=== PATIENT | female | born 1965 | race Two or more races ===

== ENCOUNTER 2024-03-13 07:09 | Outpatient (CLI) | payer OTHER | END 2024-03-13 07:20 | disposition home or self-care (01) | LOC: LAB 07:09 | DX: E11.9 Type 2 diabetes mellitus without complications (principal) ==

== ENCOUNTER 2024-04-10 07:04 | Outpatient (CLI) | payer OTHER ==
[2024-04-14 15:10] LABS: DNA AB DOUBLE STRABDED < 1 IU/mL (0-9); sjogrens ssa < 0.2 AI (0.0-0.9); sjogrens ssb < 0.2 AI (0.0-0.9)
[2024-04-16 10:47] LABS: ALDOLASE 2.4 U/L (3.3-10.3); SMOOTH MUSCLE ANTIBODY 4 Units (0-19)
== END 2024-04-10 07:05 | disposition home or self-care (01) ==
LOC: LAB 07:04
PROVIDERS: ATTEND Internal Medicine Rheumatology
DX: M06.4 Inflammatory polyarthropathy (principal); M06.09 Rheumatoid arthritis without rheumatoid factor, multiple sites; M79.10 Myalgia, unspecified site; M25.50 Pain in unspecified joint; M32.9 Systemic lupus erythematosus, unspecified; M35.00 Sjogren syndrome, unspecified; M35.1 Other overlap syndromes

== ENCOUNTER 2024-05-12 06:06 | Outpatient (CLI) | payer OTHER ==
[2024-05-12 07:53] LABS: HEMATOCRIT 34.3 % (36.0-45.00); HEMOGLOBIN 11.2 g/dL (12.0-15.00); MEAN CELL VOLUME 81.3 fL (80.00-100.00); MEAN CORPUSCULAR HEMOGLOBIN 26.6 pg (27.00-32.0); MEAN CORPUSCULAR HGB CONC 32.7 g/dl (32.0-36.0); PLATELET COUNT 278 K/uL (150-450); RED BLOOD COUNT 4.22 M/uL (4.00-6.00); RED CELL DISTRIBUTION WIDTH 13.9 % (11.5-14.5)
[2024-05-12 08:14] LABS: PH,URINE 5.5 (5.0-8.0); URINE APPEARANCE Clear; URINE BILIRRUBIN Negative (NEGATIVE); URINE BLOOD Negative; URINE COLOR Yellow; URINE GLUCOSE Negative (NEGATIVE); URINE KETONE Negative (NEGATIVE); URINE LEUKOCYTE Negative; URINE NITRATE Negative; URINE PROTEIN Negative (NEGATIVE); URINE UROBILINOGEN 0.2 E.U./dl
[2024-05-12 08:16] LABS: URINE BACTERIA 18.8 uL (0.0-1933)
[2024-05-12 08:34] LABS: URINE CAST 0.15 uL (0.0-1.40); URINE EPITHELIAL CELLS 0.6 uL (0.0-38.8); URINE RBC 0.4 uL (0.0-20.8); URINE WBC 0.4 uL (0.0-23.2)
[2024-05-12 08:39] LABS: BILIRUBIN TOTAL 0.31 mg/dL (0.3-1.2); CALCIUM 9.8 mg/dL (8.5-10.1); CHOL HDL RATIO 2.5 (0-5.0); CREATININE SERUM 0.79 mg/dL (0.55-1.02); GFR 74.49; GLOBULINA 3.3 G/DL (2.4-3.5); POTASSIUM 4.53 mEq/L (3.5-5.1); TOTAL PROTEIN 7.3 gm/dL (6.4-8.2)
== END 2024-05-12 06:07 | disposition home or self-care (01) ==
LOC: LAB 06:06
PROVIDERS: ATTEND Internal Medicine
DX: D64.9 Anemia, unspecified (principal); N39.0 Urinary tract infection, site not specified; R10.9 Unspecified abdominal pain; E03.9 Hypothyroidism, unspecified; E78.5 Hyperlipidemia, unspecified; E55.9 Vitamin D deficiency, unspecified; E11.9 Type 2 diabetes mellitus without complications

== ENCOUNTER 2024-06-14 07:04 | Outpatient (CLI) | payer OTHER | END 2024-06-14 07:13 | disposition home or self-care (01) | LOC: MAMO-SONO 07:04 | PROVIDERS: ATTEND Obstetrics & Gynecology Obstetrics | DX: N60.09 Solitary cyst of unspecified breast (principal); R10.2 Pelvic and perineal pain ==

== ENCOUNTER 2024-06-14 08:50 | Outpatient (CLI) | payer OTHER | END 2024-06-14 08:54 | disposition home or self-care (01) | LOC: NUCLEAR 08:50 | PROVIDERS: ATTEND Obstetrics & Gynecology Obstetrics | DX: M81.0 Age-related osteoporosis without current pathological fracture (principal) ==

== ENCOUNTER 2024-08-30 06:07 | Outpatient (CLI) | payer OTHER | END 2024-08-30 06:12 | disposition home or self-care (01) | LOC: LAB 06:07 | DX: E11.40 Type 2 diabetes mellitus with diabetic neuropathy, unspecified (principal) ==

== ENCOUNTER 2024-09-10 06:04 | Outpatient (CLI) | payer OTHER ==
[2024-09-10 07:19] LABS: PH,URINE 5.5 (5.0-8.0); URINE APPEARANCE Clear; URINE BILIRRUBIN Negative (NEGATIVE); URINE BLOOD Negative; URINE COLOR Dark Yellow; URINE GLUCOSE Negative (NEGATIVE); URINE KETONE Negative (NEGATIVE); URINE LEUKOCYTE Trace; URINE NITRATE Positive; URINE PROTEIN Negative (NEGATIVE)
[2024-09-10 07:20] LABS: URINE BACTERIA 15.8 uL (0.0-1933); URINE EPITHELIAL CELLS 1.8 uL (0.0-38.8); URINE RBC 0.8 uL (0.0-20.8); URINE WBC 0.1 uL (0.0-23.2)
== END 2024-09-10 06:07 | disposition home or self-care (01) ==
LOC: LAB 06:04
PROVIDERS: ATTEND Internal Medicine Rheumatology
DX: N39.0 Urinary tract infection, site not specified (principal); R80.0 Isolated proteinuria

== ENCOUNTER → 2025-03-11 06:08 | Outpatient (CLI) | payer OTHER ==
[2025-03-11 07:34] LABS: BASO % 1.1 % (0.1-1.2); EOS # 0.35 (0.04-0.54); EOS % 3.9 % (0.7-7.0); LYMPH # 2.57 (1.18-3.74); LYMPH % 28.9 % (19.3-53.1); MEAN PLATELET VOLUME 11.20 fl (9.4-12.4); MONO # 0.68 (0.24-0.82); MONO % 7.6 % (4.7-12.5); NEUT # 5.16 (1.56-6.13); NEUT % 58.1 % (34.0-71.1); RED CELL DISTRIBUTION WIDTH 14.8 % (11.6-14.4)
[2025-03-11 07:45] LABS: ERYTHROCYTE SEDIMENTATION RATE 17 mm/hr (0-30)
[2025-03-11 08:28] LABS: ob NEGATIVE (NEGATIVE)
== END | disposition home or self-care (01) ==
LOC: LAB 06:08
PROVIDERS: ATTEND Internal Medicine Gastroenterology
DX: R10.11 Right upper quadrant pain (principal); K51.511 Left sided colitis with rectal bleeding

== ENCOUNTER 2025-05-30 06:07 | Outpatient (CLI) | payer OTHER ==
[2025-05-30 07:35] LABS: URINE APPEARANCE Clear; URINE BILIRRUBIN Negative (NEGATIVE); URINE BLOOD Negative; URINE COLOR Yellow; URINE GLUCOSE Negative (NEGATIVE); URINE KETONE Negative (NEGATIVE); URINE LEUKOCYTE Negative; URINE NITRATE Negative; URINE PROTEIN Negative (NEGATIVE); URINE UROBILINOGEN 0.2 E.U./dl
[2025-05-30 07:36] LABS: BASO % 0.8 % (0.1-1.2); EOS # 0.65 (0.04-0.54); EOS % 5.9 % (0.7-7.0); LYMPH # 3.43 (1.18-3.74); LYMPH % 31.1 % (19.3-53.1); MEAN PLATELET VOLUME 10.90 fl (9.4-12.4); MONO # 0.83 (0.24-0.82); MONO % 7.5 % (4.7-12.5); NEUT # 5.97 (1.56-6.13); NEUT % 54.2 % (34.0-71.1); RED CELL DISTRIBUTION WIDTH 13.8 % (11.6-14.4)
[2025-05-30 07:39] LABS: URINE BACTERIA 50.3 uL (0.0-1933); URINE WBC 3.1 uL (0.0-23.2)
[2025-05-30 07:42] LABS: URINE CAST 0.00 uL (0.0-1.40); URINE EPITHELIAL CELLS 1.2 uL (0.0-38.8); URINE RBC 0.4 uL (0.0-20.8)
[2025-05-30 08:27] LABS: ALT/SGPT 35.0 U/L (12-78); AST/SGOT 20.0 U/L (15-37); BILIRUBIN TOTAL 0.4 mg/dL (0.3-1.2); BUN CREA RATIO 28.0 (7.0-25.0); CREATININE SERUM 1.09 mg/dL (0.55-1.02); GFR 51.2; GLOBULINA 3.6 G/DL (2.4-3.5); GLUCOSE FASTING 157.0 mg/dL (65-100); HDL 66.0 mg/dl (40-60); OSMOLALITY SERUM 291.0 MOSM/KG (275-295); TSH 2.12 uIU/mL (0.358-3.74); VLDL 83.0 (0-39)
[2025-05-30 08:31] LABS: CHOL HDL RATIO 4.1 (0-5.0); LDL 124.0 mg/dl (0-130)
== END 2025-05-30 06:11 | disposition home or self-care (01) ==
LOC: LAB 06:07
DX: D63.8 Anemia in other chronic diseases classified elsewhere (principal); Z12.11 Encounter for screening for malignant neoplasm of colon; E01.8 Other iodine-deficiency related thyroid disorders and allied conditions; E11.40 Type 2 diabetes mellitus with diabetic neuropathy, unspecified; I10 Essential (primary) hypertension; E78.5 Hyperlipidemia, unspecified; N39.0 Urinary tract infection, site not specified

== ENCOUNTER 2025-05-31 06:06 | Outpatient (CLI) | payer OTHER ==
[2025-05-31 07:12] LABS: ob NEGATIVE (NEGATIVE)
== END 2025-05-31 06:16 | disposition home or self-care (01) ==
LOC: LAB 06:06
DX: I10 Essential (primary) hypertension (principal); Z12.11 Encounter for screening for malignant neoplasm of colon; E01.8 Other iodine-deficiency related thyroid disorders and allied conditions; N39.0 Urinary tract infection, site not specified; D63.8 Anemia in other chronic diseases classified elsewhere; E11.40 Type 2 diabetes mellitus with diabetic neuropathy, unspecified; E78.5 Hyperlipidemia, unspecified